=== PATIENT | female | born 1945 | race Caucasian/White ===

== ENCOUNTER → 2018-08-29 | Outpatient (CLI) | payer MEDICARE ==
--- NOTE | 2018-08-29 13:04 | REP ---
Supine abdomen two views: There are no comparisons. There are faintly visible calculus superimposed over the left kidney. No other calcifications are identified. Bowel gas pattern is normal. Skeletal structures are unremarkable. Electronically Signed by Abiodun Ingram MD 08/29/2018 12:56 P
== END ==
LOC: M CLY 11:08
PROVIDERS: ATTEND Urology
DX: N20.0 Calculus of kidney (principal)

== ENCOUNTER → 2018-10-21 | Outpatient (REF) | payer MEDICARE ==
[2018-10-21 18:56] LABS: URIC ACID 3.1 MG/DL (2.6-6.0)
== END ==
LOC: M LABDRWCV 16:36 → M LABDRAWC 16:36
PROVIDERS: ATTEND Urology
DX: N20.0 Calculus of kidney (principal)